=== PATIENT | female | born 1985 | race Caucasian/White ===

== ENCOUNTER 2019-03-27 23:10 | Emergency (ER) | payer BC, OTHER ==
[2019-03-27] MEDS ORDERED: Sodium Chloride 0.9% 1,000 ML IV SCH (23:15)
[2019-03-27] MEDS ORDERED: fentaNYL 100 MCG/2 ML SDV IVPUSH ONE (23:19)
[2019-03-27] MEDS ORDERED: Ondansetron 4 MG/2 ML SDV IVPUSH ONE (23:26)
[2019-03-27] MEDS ORDERED: Pantoprazole 40 MG Vial IVPUSH SCH (23:30)
[2019-03-27 23:42] LABS: CHLORIDE,CL 107 mmol/L (98-107); SODIUM,NA 144 mmol/L (136-145)
[2019-03-27] MEDS: Sodium Chloride 0.9% 10 ML Syringe FLUSH PRN (23:43)
[2019-03-27] MEDS ORDERED: Iopamidol 612 MG/ML 100 ML Bottle IVPUSH ONE (23:47)
[2019-03-28] MEDS ORDERED: fentaNYL 100 MCG/2 ML SDV IVPUSH ONE ×2 (00:24→02:00)
[2019-03-28] MEDS ORDERED: LORazepam 2 MG/ML SDV IVPUSH ONE (00:26)
[2019-03-28 00:31] VITALS: PULSE 97
[2019-03-28] MEDS: Sodium Chloride 0.9% 10 ML Syringe FLUSH PRN (00:34)
[2019-03-28] MEDS ORDERED: fentaNYL 250 MCG/5 ML SDV IVPUSH ONE ×2 (01:51→02:00)
[2019-03-28] MEDS ORDERED: fentaNYL 100 MCG/2 ML SDV ONE (02:03)
--- NOTE | 2019-03-28 02:34 | EDM.PDOC ---
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 and nobody seems to know why she gets pain at this time patient was crying and severe pain bending over we decided to go ahead and do some labs which were pretty much within normal limits and CAT scan which was nonspecific no gross abnormalities were seen at this time an amylase and lipase were done which were within normal limits Onset: Today Duration: Hour(s):, Getting Worse Location: Reports: Face, Abdomen Quality: Reports: Ache, Stabbing Severity: Severe Improves with: Reports: Medication Worsens with: Reports: None Associated Symptoms: Reports: No Other Symptoms Treatments WIGS SALESPERSON: Reports: Other Medication(s) Bilateral Middle Back Pain Score (Numeric/FACES): 12 - Related Data Allergies Allergy/AdvReac Type Severity Reaction Status Date / Time codeine Allergy Hives Verified 03/27/19 23:14 latex Allergy Hives Verified 03/27/19 23:14 Penicillins Allergy Numbness Verified 03/27/19 23:14 flu vaccine Allergy Unknown Anaphylactic Uncoded 03/27/19 23:14 Shock Home Meds: Home Meds Furosemide [Lasix] 40 mg PO BID 10/05/14 [History] SUMAtriptan [Imitrex] 100 mg PO TID PRN 10/05/14 [History] Diclofenac Sodium [IJD: Diclofenac Sodium] 75 mg PO DAILY 03/28/17 [History] Losartan [Cozaar] 100 mg PO DAILY 03/28/17 [History] Simethicone [Gas-X] 2 tab PO ONETIME 03/27/19 [History] Past Medical History HEENT History: Reports: Impaired Vision Cardiovascular History: Reports: Hypertension, Other (See Below) Other Cardiovascular History: fluid retention Gastrointestinal History: Reports: Hemorrhoids [employer]ONS OFFICER History: Reports: Other (See Below) Other [employer] OFFICER History: cervical cancer Musculoskeletal History: Reports: Other (See Below) Other Musculoskeletal History: Chronic right knee pain Neurological History: Reports: Concussion, Head Trauma, Migraines Psychiatric History: Reports: Anxiety, Other (See Below) Other Psychiatric History: Uses xanax prn to help sleep. Oncologic (Cancer) History: Reports: Cervix - Infectious Disease History Infectious Disease History: Reports: Chicken Pox - Past Surgical History HEENT Surgical History: Reports: Adenoidectomy, Tonsillectomy GI Surgical History: Reports: Cholecystectomy, Colonoscopy, EGD Female Surgical History: Reports: Cervical Conization, Hysterectomy Social & Family History - Tobacco Use Smoking Status *Q: Current Some Day Smoker Years of Tobacco use: 10 Packs/Tins Daily: 0.2 - Caffeine Use Caffeine Use: Reports: None - Living Situation & Occupation Living situation: Reports: Occupation: Employed ED ROS GENERAL - Review of Systems Review Of Systems: See Below Constitutional: Reports: Other (Abdominal) HEENT: Reports: No Symptoms Respiratory: Reports: No Symptoms Cardiovascular: Reports: No Symptoms Endocrine: Reports: No Symptoms GI/Abdominal: Reports: Abdominal Pain : Reports: No Symptoms Musculoskeletal: Reports: No Symptoms Skin: Reports: No Symptoms Neurological: Reports: No Symptoms Psychiatric: Reports: No Symptoms Hematologic/Lymphatic: Reports: No Symptoms Immunologic: Reports: No Symptoms ED EXAM, GI/ABD - Physical Exam Exam: See Below Exam Limited By: No Limitations Ears: Normal External Exam, Normal Canal, Hearing Grossly Normal, Normal TMs Nose: Normal Inspection, Normal Mucosa, No Blood Throat/Mouth: Normal Inspection, Normal Lips, Normal Teeth, Normal Gums, Normal Oropharynx, Normal Voice, No Airway Compromise Head: Atraumatic, Normocephalic Neck: Normal Inspection, Supple, Non-Tender, Full Range of Motion Respiratory/Chest: No Respiratory Distress, Lungs Clear, Normal Breath Sounds, No Accessory Muscle Use, Chest Non-Tender Cardiovascular: Normal Peripheral Pulses, Regular Rate, Rhythm, No Edema, No Gallop, No JVD, No Murmur, No Rub GI/Abdominal Exam: Normal Bowel Sounds, Soft, No Organomegaly, No Distention, No Abnormal Bruit, No Mass, Pelvis Stable, Tender (Female) Exam: Deferred Rectal (Female) Exam: Deferred Back Exam: Normal Inspection, Full Range of Motion, NT Extremities: Normal Inspection, Normal Range of Motion, Non-Tender, Normal Capillary Refill, No Pedal Edema Neurological: Alert, Oriented, CN II-XII Intact, Normal Cognition, Normal Gait, Normal Reflexes, No Motor/Sensory Deficits Psychiatric: Normal Affect, Normal Mood Skin Exam: Warm, Dry, Intact, Normal Color, No Rash Lymphatic: No Adenopathy Course - Vital Signs Last Recorded V/S: Last Vital Signs Temp 97.7 F 03/27/19 23:19 Pulse 97 03/28/19 00:29 Resp 25 H 03/27/19 23:19 BP 145/85 H 03/28/19 02:47 Pulse Ox 100 03/28/19 02:47 - Orders/Labs/Meds Labs: Laboratory Tests 03/27/19 03/27/19 03/27/19 Range/Units 23:23 23:23 23:23 WBC 12.5 H (4.0-10.2) K/uL RBC 4.40 (3.77-5.09) M/uL Hgb 13.7 (11.7-15.5) g/dL Hct 39.8 (34.0-46.0) % MCV 90.5 (84.0-98.0) fL MCH 31.1 (28.2-33.3) pg MCHC 34.4 (31.7-36.0) g/dL RDW 13.5 (11.2-14.1) % Plt Count 392 H (150-350) K/uL Neut % (Auto) 44.8 L (45.0-80.0) % Lymph % (Auto) 44.4 (10.0-50.0) % [place] % (Auto) 9.0 (2.0-14.0) % Eos % (Auto) 1.4 (0.0-5.0) % Baso % (Auto) 0.4 (0.0-2.0) % Neut # (Auto) 5.59 (1.40-7.00) K/uL Lymph # (Auto) 5.55 H (0.50-3.50) K/uL [place] # (Auto) 1.13 H (0.00-1.00) K/uL Eos # (Auto) 0.18 (0.00-0.50) K/uL Baso # (Auto) 0.05 (0.00-0.20) K/uL Sodium 144 (136-145) mmol/L Potassium 3.3 L (3.5-5.1) mmol/L Chloride 107 (98-107) mmol/L Carbon Dioxide 26.8 (21.0-32.0) mmol/L BUN 10 (7-18) mg/dL Creatinine 0.69 (0.51-1.17) mg/dL Est Cr Clr Drug Dosing TNP Estimated GFR (MDRD) > 60 mL/min Glucose 133 H (74-106) mg/dL Calcium 8.7 (8.5-10.1) mg/dL Total Bilirubin 0.2 (0.2-1.0) mg/dL AST 17 (15-37) U/L ALT 28 (12-78) U/L Alkaline Phosphatase 91 (46-116) IU/L Total Protein 7.3 (6.4-8.2) g/dL Albumin 3.2 L (3.4-5.0) g/dL Amylase 38 (25-115) U/L Lipase 159 (73-393) U/L Specimen Type Urine Color Urine Appearance Urine pH (5.0-9.0) Ur Specific [place] (1.005-1.030) Urine Protein (NEGATIVE) mg/dL Urine Glucose (UA) (NEGATIVE) mg/dL Urine Ketones (NEGATIVE) mg/dL Urine Occult Blood (NEGATIVE) Urine Nitrite (NEGATIVE) Urine Bilirubin (NEGATIVE) Urine Urobilinogen (0.2-1.0) E.U./dL Ur Leukocyte Esterase (NEGATIVE) Urine RBC /HPF Urine WBC /HPF Ur Epithelial Cells /LPF Urine Bacteria (NONE TO FEW) /HPF 03/28/19 Range/Units 00:10 WBC (4.0-10.2) K/uL RBC (3.77-5.09) M/uL Hgb (11.7-15.5) g/dL Hct (34.0-46.0) % MCV (84.0-98.0) fL MCH (28.2-33.3) pg MCHC (31.7-36.0) g/dL RDW (11.2-14.1) % Plt Count (150-350) K/uL Neut % (Auto) (45.0-80.0) % Lymph % (Auto) (10.0-50.0) % [place] % (Auto) (2.0-14.0) % Eos % (Auto) (0.0-5.0) % Baso % (Auto) (0.0-2.0) % Neut # (Auto) (1.40-7.00) K/uL Lymph # (Auto) (0.50-3.50) K/uL [place] # (Auto) (0.00-1.00) K/uL Eos # (Auto) (0.00-0.50) K/uL Baso # (Auto) (0.00-0.20) K/uL Sodium (136-145) mmol/L Potassium (3.5-5.1) mmol/L Chloride (98-107) mmol/L Carbon Dioxide (21.0-32.0) mmol/L BUN (7-18) mg/dL Creatinine (0.51-1.17) mg/dL Est Cr Clr Drug Dosing Estimated GFR (MDRD) mL/min Glucose (74-106) mg/dL Calcium (8.5-10.1) mg/dL Total Bilirubin (0.2-1.0) mg/dL AST (15-37) U/L ALT (12-78) U/L Alkaline Phosphatase (46-116) IU/L Total Protein (6.4-8.2) g/dL Albumin (3.4-5.0) g/dL Amylase (25-115) U/L Lipase (73-393) U/L Specimen Type Urincc Urine Color Light yellow Urine Appearance Clear Urine pH 7.0 (5.0-9.0) Ur Specific [place] 1.015 (1.005-1.030) Urine Protein Negative (NEGATIVE) mg/dL Urine Glucose (UA) Negative (NEGATIVE) mg/dL Urine Ketones Negative (NEGATIVE) mg/dL Urine Occult Blood Negative (NEGATIVE) Urine Nitrite Negative (NEGATIVE) Urine Bilirubin Negative (NEGATIVE) Urine Urobilinogen 0.2 (0.2-1.0) E.U./dL Ur Leukocyte Esterase Negative (NEGATIVE) Urine RBC Not seen /HPF Urine WBC 0-5 /HPF Ur Epithelial Cells Occasional /LPF Urine Bacteria Occasional (NONE TO FEW) /HPF Meds: Medications Discontinued Medications Generic Name Dose Route Start Last Admin Trade Name Freq PRN Reason Stop Dose Admin Fentanyl 100 mcg 03/27/19 23:19 03/27/19 23:34 Sublimaze IVPUSH 03/27/19 23:20 100 mcg ONETIME ONE Administration Fentanyl 100 mcg 03/28/19 00:24 03/28/19 00:32 Sublimaze IVPUSH 03/28/19 00:25 100 mcg ONETIME ONE Administration Fentanyl 250 mcg 03/28/19 01:51 03/28/19 05:02 Sublimaze IVPUSH 03/28/19 01:52 Not Given ONETIME ONE Fentanyl 200 mcg 03/28/19 02:00 03/28/19 05:02 Sublimaze IVPUSH 03/28/19 02:01 Not Given ONETIME ONE Fentanyl Confirm 03/28/19 02:03 03/28/19 02:42 Sublimaze Administered 03/28/19 02:04 Not Given Dose 200 mcg .ROUTE .STK-MED ONE Fentanyl 200 mcg 03/28/19 02:00 03/28/19 02:09 Sublimaze IVPUSH 03/28/19 02:01 200 mcg ONETIME ONE Administration Sodium Chloride 1,000 mls @ 150 mls/hr 03/27/19 23:15 03/27/19 23:26 Normal Saline IV 150 mls/hr ASDIRECTED RUTH Administration Iopamidol 100 ml 03/27/19 23:47 03/27/19 23:47 Isovue-300 (61%) IVPUSH 03/27/19 23:48 100 ml ONETIME ONE Administration Lorazepam 1 mg 03/28/19 00:26 03/28/19 01:15 Ativan IVPUSH 03/28/19 00:27 1 mg ONETIME ONE Administration Lorazepam 1 mg 03/28/19 03:54 03/28/19 04:00 Ativan PO 03/28/19 03:55 1 mg ONETIME ONE Administration Ondansetron HCl 4 mg 03/27/19 23:26 03/27/19 23:31 Zofran IVPUSH 03/27/19 23:27 4 mg ONETIME ONE Administration Pantoprazole Sodium 40 mg 03/27/19 23:30 03/27/19 23:43 Protonix Iv IVPUSH 40 mg DAILY RUTH Administration Sodium Chloride 10 ml 03/27/19 23:14 03/28/19 00:34 Saline Flush FLUSH 10 ml ASDIRECTED PRN Administration Keep Vein Open Sucralfate 1 gm 03/28/19 02:28 03/28/19 02:50 Carafate PO 03/28/19 02:29 1 gm ONETIME ONE Administration Departure - Departure Time of Disposition: 04:05 Disposition: Home, Self-Care 01 Clinical Impression: Abdominal pain Qualifiers: Abdominal location: epigastric Qualified Code(s): R10.13 - Epigastric pain - Discharge Information *PRESCRIPTION DRUG MONITORING PROGRAM REVIEWED*: No *COPY OF PRESCRIPTION DRUG MONITORING REPORT IN PATIENT JAIMIE: No Instructions: Abdominal Pain, Adult Referrals: Peter Rueda [id number] [Primary Care Provider] - Forms: ED Department Discharge Care Plan Goals: Once the pain is controlled patient will be sent home she'll return to the clinic or ER if is worsening.
[2019-03-28] MEDS: Sucralfate 1 GM Tab PO ONE ×2 (02:35→02:50)
[2019-03-28 02:48] VITALS: BP 145/85
[2019-03-28] MEDS ORDERED: LORazepam 1 MG Tab PO ONE (03:54)
== END 2019-03-28 04:05 | disposition home or self-care (01) ==
LOC: LL.ED 23:10
DX: R10.13 Epigastric pain (principal); I10 Essential (primary) hypertension; F17.210 Nicotine dependence, cigarettes, uncomplicated; Z88.5 Allergy status to narcotic agent; Z88.0 Allergy status to penicillin; Z91.040 Latex allergy status; Z88.7 Allergy status to serum and vaccine; Z79.899 Other long term (current) drug therapy
CPT/HCPCS: 36415; 74177; 80053; 81001; 82150; 83690; 85025; 96361; 96374; 96375; 96376; 99284; A9270; C9113; J2060; J2405; J3010; J7030; Q9967